=== PATIENT | female | born 1995 | race Caucasian/White ===

== ENCOUNTER 2016-09-03 07:39 | Outpatient (CLI) | payer BC ==
[~2016-09-03 07:39] MED LIST: IBUPROFEN400 MG PO
--- NOTE | 2016-09-03 09:21 | DIAGNOSTIC IMAGING REPORT ---
PROCEDURE: US ABDOMEN ULTRASOUND-COMPLETE INDICATION: EPIGASTRIC PAIN TECHNIQUE: Smith scale and color Doppler sonographic images of the abdomen were obtained. COMPARISON: Abdominal ultrasound 08/15/2008. FINDINGS: Liver measures 17.9 cm with increased echogenicity. Normal gallbladder and CBD (3.5 mm). Mild splenomegaly (13.9 x 6.1 cm). Pancreas normal as visualized. Aorta and IVC are patent. Normal hepatopetal flow. Normal kidneys. Right kidney measures 11.2 cm and left 11.6 cm. IMPRESSION: 1. Hepatic steatosis versus intrinsic liver disease 2. Mild splenomegaly
== END 2016-09-03 23:00 ==
LOC: US SRH 07:39
DX: R10.13 Epigastric pain (principal); R16.1 Splenomegaly, not elsewhere classified